=== PATIENT | female | born 1945 | race African-American/Black ===

== ENCOUNTER 2016-06-22 07:41 | Emergency (ER) | payer MEDICARE, OTHER ==
[2016-06-22 07:36] LABS: INFLUENZA A SCREEN NEGATIVE (NEGATIVE); INFLUENZA B SCREEN NEGATIVE (NEGATIVE)
[~2016-06-22 07:41] MED LIST: APRES25 PO; ASAB PO; CAP50 PO; CARD120 PO; CLARIT10 PO; COMBIGAN0.2 MG/0.5 OP; COREG25 PO; DEMA20 PO; FERROUS SULF325 M1 PO; GLUMETZA500 MG PO; HALF81 PO; HUMULIN SC; INTEGRA PLUS C1 EACH PO; KLOR-CON 1010 MEQ PO; LANTUS SC; LUMIGAN OPH; MAGOX4 PO; MICARDIS H80 MG/25 M PO; MICARDIS80 PO; MULTIPLE VIT PO; NOVOLOG SC; PLETAL100 PO; PR25 PO; PRILO PO; PROAIR HFA INH; PROAIRRESP INH; SINGULAIR1 PO; SODBICAR10 PO; SPIRIVA INH; SPIRO25 PO; SYSTANE OPH; TAZTIA X3 PO; VITAMIN D31000 UNIT PO; ZOCOR40 PO
== END 2016-06-22 08:13 | disposition home or self-care (01) ==
LOC: ER 07:41
PROVIDERS: Emergency Medicine
DX: B34.9 Viral infection, unspecified (principal); J45.909 Unspecified asthma, uncomplicated; J44.9 Chronic obstructive pulmonary disease, unspecified; I10 Essential (primary) hypertension; K21.9 Gastro-esophageal reflux disease without esophagitis; F32.9 Major depressive disorder, single episode, unspecified; Z79.4 Long term (current) use of insulin; Z87.891 Personal history of nicotine dependence; Z79.82 Long term (current) use of aspirin; Z79.899 Other long term (current) drug therapy
CPT/HCPCS: 70220; 82962; 87804; 93005; 94640; 99285